=== PATIENT | male | born 1965 | race Caucasian/White ===

== ENCOUNTER 2017-04-12 16:52 | Inpatient (IN) | payer OTHER ==
--- NOTE | ~2017-04-12 | CR72 ---
[facility] A Service of [facility] RADIOLOGY TEXT RESULTS PATIENT: JORGE RICH LOCATION: [place] [address] : [birth year] UNIT #: [id number] AGE: [address]: HORACIO FRAGOSO MD SEX: M ORDER DR: [id number] [facility] [address] [facility]. [place], [place] [address] [id number] I MR#: [id number] Acc #: [id number] NAME: JORGE RICH : 1965 SEX: M STUDY DATE/TIME: 04/12/2017 18:56 UNIT: CEDOF ROOM: [id number] STUDY DESCRIPTION: CR Chest Single View Portable Attending Physician: Horacio Fragoso M.D. Ordering Physician: Lb Abdullahi M.D. Primary Care Physician: Kerry Rome M.D. MEDICAL IMAGING REPORT This report is preliminary unless electronic signature is present EXAM AP portable chest 04/12/2017 HISTORY Weakness, fatigue, chest pain, shortness of breath for 4 days. COMPARISON PA and lateral chest radiograph 08/18/2016. FINDINGS There is mjmj-fb-fntzijvm cardiac enlargement which appears increased compared to 08/18/2016. Linear subsegmental atelectasis or scarring is present left base. Pulmonary vascular distribution is normal. No pleural effusion or pneumothorax is identified. No consolidation. IMPRESSION 1. Zxxn-nj-iehodyxk cardiac enlargement appears new or increased compared to 08/18/2016. Findings could represent changes of cardiac decompensation or even underlying pericardial effusion. Correlate clinically. 2. Minimal linear scarring or subsegmental atelectasis in the left lower lobe. No consolidation. Dictated by... Tiffany Godwin M.D. THIS IS AN ELECTRONICALLY VERIFIED REPORT Tiffany Godwin M.D. at 04/13/2017 10:06 AM CECILIA/anne TD: 04/13/2017 06:27 JOB #: [id number] [facility] A Service of [facility] RADIOLOGY TEXT RESULTS PATIENT: JORGE RICH LOCATION: [facility] 571-01 : [birth year] UNIT #: [id number] AGE: [address]: HORACIO FRAGOSO MD SEX: M ORDER DR: MEDICAL IMAGING REPORT Page 1 of 1 COPY
--- NOTE | ~2017-04-12 | CO ---
Unit #: [id number] #: [id number] Patient: JORGE MELENDEZ [id number] [address] [place], [place] [address] [id number] I MR#: [id number] NAME: JORGE MELENDEZ ROOM: 577 Age: 51 Sex: M Admission Date: 04/12/2017 : 1965 Attending Physician: Linda Coughlin M.D. Primary Care Physician: Kerry Rome M.D. CONSULTATION REPORT Mr. Melendez is a very pleasant gentleman, 51 years old, with no prior cardiac history and came in achy all over, couldn't sleep, having pain, and he was admitted, found to have a pericardial effusion and had changes suggesting pericarditis. The patient underwent a tap of this and the tap showed that he had inflammatory looking infiltrate but nothing that looked malignant. He was consulted to hematology for evaluation. He did have an upper torso CT of the chest that was clear for any malignancy but has been a [facility] smoker. His father, interestingly, had bladder cancer. PAST MEDICAL HISTORY 1. Hypertension. 2. Insulin dependent diabetes. 3. Anxiety/depression. 4. Sleep apnea. 5. Left knee surgery. 6. Back surgery. ALLERGIES He is allergic to Keflex. MEDICATIONS 1. Cymbalta. 2. Metformin. 3. Humalog. 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 Smokes a pack a day. Does not drink, does not use drugs. FAMILY HISTORY Father with bladder cancer and Betty Gehrig's disease. REVIEW OF SYSTEMS Positive for chills, flu-like symptoms when he came in the hospital. Positive shortness of breath. Twelve points otherwise negative. PHYSICAL EXAMINATION VITAL SIGNS: Blood pressure of 106/78, heart rate 110, respirations 16, temperature 98.6, 93% sats on room air. He weighs 208 pounds. HEENT: Eyes - no scleral icterus. Pupils are equal. Mouth moist. Hearing is intact. NECK: Normal JVD. Trachea midline. LUNGS: Clear. Symmetric chest expansion. HEART: Regular rate and rhythm. No peripheral edema. Unit #: [id number] #: [id number] Patient: JORGE MELENDEZ ABDOMEN: Soft. No masses. LYMPHS: No cervical or supraclavicular adenoma. SKIN: No rashes, ulcers, nodules. NEUROLOGIC: He is awake, alert, oriented to person, place and time with normal memory, judgment, affect and insight. ASSESSMENT Very pleasant gentleman with pericardial effusion that has been tapped. Effusion was felt to be benign with inflammatory infiltrate. Plan is to go ahead and get a CT of the abdomen and pelvis as an outpatient, follow him in clinic. He has no palpable adenopathy and will watch. Dictated by... Ac Simmons M.D. Ankur TD: 04/17/2017 07:36 JOB #: [id number] CONSULTATION REPORT Page 1 of 1 X X CONSULTATION REPORT
--- NOTE | ~2017-04-12 | CO ---
Unit #: [id number] #: [id number] Patient: JORGE RICH [id number] [address] [place], [place] [address] [id number] I MR#: [id number] NAME: JORGE RICH ROOM: 577 Age: 51 Sex: M Admission Date: 04/12/2017 : 1965 Attending Physician: Linda Coughlin M.D. Primary Care Physician: Kerry Rome M.D. CONSULTATION REPORT REASON FOR CONSULTATION Diabetes management. HISTORY OF PRESENT ILLNESS The patient is a 51-year-old male with a history of hypertension and diabetes, admitted to the hospital with pericardial effusion. The patient is status post pericardial window and medicine consult has been placed for the diabetes management. The patient has the diagnosis of diabetes for the last 15 years and the patient is on metformin 1200 mg b.i.d. and Humulin and Humalog mix 50/50 pen 25 units subcutaneous t.i.d. with meals. The patient's blood sugar runs in the range of 150 to 200 at home. The patient's sugars are running more than 200 in the hospital. The patient's metformin is on hold secondary to the CT of the chest that the patient had at the time of admission. The patient's hemoglobin A1c is 8.6. PAST MEDICAL HISTORY 1. Hypertension. 2. Insulin dependent diabetes mellitus. 3. Anxiety/depression. PAST SURGICAL HISTORY 1. Left knee surgery. 2. Back surgery. 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 He smokes one pack per day and has done so since age 18. He denies any alcohol for the last four or five days. However, he usually drinks three drinks of whiskey per day. He denies any illicit drug abuse. FAMILY HISTORY Reviewed and none. ALLERGIES Cephalexin. HOME MEDICATIONS 1. Cymbalta. 2. Metformin 1000 b.i.d. 3. Humalog 50/50, 25 units subcutaneous t.i.d. with meals. REVIEW OF SYSTEMS Unit #: [id number] #: [id number] Patient: JORGE RICH Fourteen point review of systems was performed and only pertinent positive findings are described above. The remaining are negative. PHYSICAL EXAMINATION GENERAL: The patient is lying on the bed, not in acute distress. VITALS: Temperature 97.9, pulse 94, respiratory rate 18, saturating 97% on 2 liters. Blood pressure 122/82. HEENT: Head atraumatic, normocephalic. Pupils equal, round and reactive to light and accommodation. Extraocular movements are intact. NECK: Supple. LUNGS: Decreased air entry. CHEST: Status post pericardial window with serosanguineous fluid draining. HEART: Regular rate and rhythm. ABDOMEN: Soft. Positive bowel sounds. EXTREMITIES: No cyanosis or clubbing. NEUROLOGIC: Alert, awake and oriented. No gross focal motor deficits. DIAGNOSTIC STUDIES LABORATORY: Hemoglobin A1c 8.6, blood sugar 219, 206 and 186, sodium 133, potassium 4.6, chloride 94, bicarb 31, glucose 222, BUN 16, creatinine 0.5, calcium 8.4. White blood cell count 10, hemoglobin 12.6, hematocrit 39, platelets 228. ASSESSMENT 1. Pericardial effusion, status post pericardial window. 2. Uncontrolled diabetes mellitus. PLAN Plan to continue with postoperative (2) pericardial window and continue with sliding scale and upgrade to medium scale from the low sliding scale. We will start the home Humalog mix 50/50, 25 units subcutaneous t.i.d. with meals. Hold metformin secondary to the contrast received on 04/13/2017. Further recommendations will follow. Dictated by... Britany Hsu TD: 04/15/2017 12:48 JOB #: [id number] CONSULTATION REPORT Page 1 of 1 X KIRK AYALA MD CONSULTATION REPORT
--- NOTE | ~2017-04-12 | CR72 ---
[facility] A Service of [facility] RADIOLOGY TEXT RESULTS PATIENT: JORGE RICH LOCATION: [place] [address] : [birth year] UNIT #: [id number] AGE: [address]: HORACIO FRAGOSO MD SEX: M ORDER DR: [id number] [facility] [address] [facility]. [place], [place] [address] [id number] I MR#: [id number] Acc #: [id number] NAME: JORGE RICH : 1965 SEX: M STUDY DATE/TIME: 04/13/2017 18:45 UNIT: [facility] ROOM: [facility] STUDY DESCRIPTION: CR Chest Single View Portable Attending Physician: Horacio Fragoso M.D. Primary Care Physician: Kerry Rome M.D. MEDICAL IMAGING REPORT This report is preliminary unless electronic signature is present EXAM Chest x-ray portable HISTORY Pericardial drain placed, short of air, chest pain starting today. COMMENT Single frontal portable view of the chest timed 18:45 on 04/13/2017 compared to 04/12/2017. Moderate cardiac silhouette enlargement is mildly worse and there is worsening vascular congestion, interstitial edema and airspace disease most confluent in the left base. There is no pneumothorax. There may be some component of left pleural effusion. IMPRESSION Interval worsening in the appearance of the chest with worsening congestive failure. Most focal airspace disease is seen at the left base and there may be a component of left pleural fluid. Moderate cardiac silhouette enlargement. This could be due to cardiomyopathy and/or pericardial effusion. Clinical correlation and follow up recommended. Dictated by... Elodia Valenzuela M.D. THIS IS AN ELECTRONICALLY VERIFIED REPORT Elodia Valenzuela M.D. at 04/14/2017 10:04 AM MEHRAN/nena TD: 04/14/2017 01:51 JOB #: [id number] [facility] A Service [facility] RADIOLOGY TEXT RESULTS PATIENT: JORGE RICH LOCATION: [address] : [birth year] UNIT #: [id number] AGE: [address]: HORACIO FRAGOSO MD SEX: M ORDER DR: MEDICAL IMAGING REPORT Page 1 of 1 COPY
--- NOTE | ~2017-04-12 | EKG ---
PATIENT: JORGE RICH UNIT #: [id number] Ventricular Rate: 118 BPM Atrial Rate: 118 BPM P-R Interval: 120 ms QRS Duration: 76 ms Q-T Interval: 312 ms QTC Calculation(Bezet): 437 ms P [place]: 54 degrees Calculated R [place]: 64 degrees Calculated T [place]: 31 degrees Diagnosis Line: Sinus tachycardia Diagnosis Line: Low voltage QRS Diagnosis Line: Nonspecific ST abnormality Diagnosis Line: Abnormal ECG Diagnosis Line: No previous ECGs available Diagnosis Line: Confirmed by THELMA PARIS MD ([id number]) on Diagnosis Line: 04/13/2017 7:09:08 PM INTERPRETING MD: WELLINGTON CONRAD
--- NOTE | ~2017-04-12 | EKG ---
PATIENT: JORGE RICH UNIT #: [id number] Ventricular Rate: 99 BPM Atrial Rate: 99 BPM P-R Interval: 134 ms QRS Duration: 86 ms Q-T Interval: 354 ms QTC Calculation(Bezet): 454 ms P [place]: 35 degrees Calculated R [place]: 36 degrees Calculated T [place]: 16 degrees Diagnosis Line: Normal sinus rhythm with sinus arrhythmia Diagnosis Line: Normal ECG Diagnosis Line: When compared with ECG of 12-APR-2017 17:07, Diagnosis Line: No significant change was found Diagnosis Line: Confirmed by GER ADAMS MD ([id number]) on 04/19/2017 Diagnosis Line: 1:09:47 PM INTERPRETING MD: BRYAN CONRAD
--- NOTE | ~2017-04-12 | HP ---
Unit #: [id number] #: [id number] Patient: JORGE MELENDEZ [id number] [place] [address] [facility]. [place], [place] [address] [id number] I MR#: [id number] NAME: JORGE MELENDEZ ROOM: 571 Age: 51 Sex: M Admission Date: 04/12/2017 : 1965 Attending Physician: Linda Coughlin M.D. Primary Care Physician: Kerry Rome M.D. HISTORY AND PHYSICAL CHIEF COMPLAINT Decreased blood pressure. HISTORY OF PRESENT ILLNESS Mr. Melendez is a 51-year-old male with no prior cardiac history. He apparently has had four days of no energy, achy all over, couldn't get enough sleep, and also feeling as though his chest was achy, radiating into his shoulders and back. This was especially noted with coughing. Yesterday, he went to his primary care physician's office and at that time his blood pressure was 82/54 and 80/52 and his heart rate was elevated. He was sent to [facility] emergency room where he was admitted with hypotension. A CT of his chest was completed which has displayed moderately large pericardial effusion with pericardial enhancement suggesting underlying pericarditis. Maximal thickness of the pericardial effusion measures up to 3.1 cm posteriorly. Currently, he is stable with a lower blood pressure but doing well with no complaint of shortness of breath while lying in the bed. Having some ache in his chest occasionally. This information was received from patient interview as well as record review. PRIOR CARDIAC TESTING HISTORY He states he had an echo maybe approximately six months ago for some tachycardia but that he never followed up with those results. He believes it was at [facility] and I will attempt to find that record. PAST MEDICAL HISTORY 1. Hypertension. 2. Insulin dependent diabetes. 3. Anxiety. 4. Depression. 5. Untreated sleep apnea for which he has a CPAP machine but he is intolerant. 6. Left knee surgery. 7. Back surgery. ALLERGIES Cephalexin. HOME MEDICATIONS They include the followin. Cymbalta 60 mg daily. 2. Metformin 1000 mg twice a day. 3. Humalog 50/50 pen, 25 units subcu three times a day with meals. 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 He smokes one pack a day and has done so since age 18. He has not had any alcohol for four days but usually drinks three drinks of whiskey per day. He denies the use of illicit drugs. FAMILY HISTORY His father is living with Betty Gehrig's disease. His brothers and sister and mother are all alive and well with no known health problems. REVIEW OF SYSTEMS GENERAL: Positive for fever, chills, flu-like symptoms over the last four days but no unintentional weight loss. SKIN: Denies any rashes, ulcerations or wounds. HEADACHE: Frequently over the last four days. EYES: Yesterday he had some color change and light sensitivity. EARS: Denies any sudden change in hearing. BLEEDING: Denies epistaxis, hemoptysis, hematuria or melena. THROAT: Denies any problems swallowing. LUNGS: Denies any wheeze but positive for cough and shortness of breath, especially over the last four days. CHEST: Positive for pain as described in HPI. No palpitations, tachycardia, PND or orthopnea. GI: He denies an nausea, vomiting, diarrhea, constipation or change in stools. GENITOURINARY: Denies any burning or urgency. EXTREMITIES: Denies any swelling or increased pain with walking. SPINE: He does have occasional chronic back pain since his back surgery. NEURO: He has had right foot numbness for ten years since the back surgery. No seizures, stroke-like symptoms, dizziness, unsteadiness or falls. PHYSICAL EXAMINATION VITAL SIGNS: Blood pressure is 106/78, heart rate is 110, respirations 16, temperature is 98.6, 93% oxygenated on room air. 280 pounds. GENERAL: Well developed, well nourished white male in no acute distress, resting in the bed. SKIN: No obvious rashes or ulcerations noted. EYES: PERRLA. No xanthelasma. ORAL: Fair dentition. Moist mucous membranes. No pallor. NECK: No carotid bruits auscultated bilaterally. No jugular vein distention. SPINE: No scoliosis. CHEST: Clear to auscultation bilaterally. No wheezes, rales or rhonchi. CARDIAC: S1 and S2. No murmur, rub, gallop or lift. ABDOMEN: Soft, nontender. Positive bowel sounds. EXTREMITIES: Bilateral pedal pulses +1. NEUROLOGICAL: Alert and oriented x3. Speech is clear. No obvious neuro deficits. DIAGNOSTIC STUDIES IMAGING: CT of the chest shows moderately large pericardial effusion with pericardial enhancement suggesting underlying pericarditis. Maximal thickness of pericardial effusions measure up to 3.1 cm posteriorly. Trace left pleural effusion with mild bilateral lower lobe and lingual atelectasis. No pulmonary embolism. Chest x-ray shows mild to moderate cardiac enlargement, possible cardiac Unit #: [id number] #: [id number] Patient: JORGE MELENDEZ decompensation or underlying pericardial effusion. Minimal linear scarring or subsegmental atelectasis in the left lower lobe. LABORATORY: Sodium 132, potassium 4.7, glucose 207, BUN 16, creatinine 0.6, cholesterol 143, triglycerides 114, LDH 75, HDL 45, TSH 1.69. PT 11.2, INR 1.1, hemoglobin 12.2, hematocrit 37.1, platelets 230 and white blood cell count 11.5. Troponin less than 0.05 x2. Hemoglobin 12.9, hematocrit 39, platelets 269 and white blood cell count 13.7. IMPRESSION 1. Large pericardial effusion. 2. Hypotension. 3. Tachycardia. 4. Hyponatremia. 5. History of hypertension. 6. Insulin dependent diabetes. 7. Anxiety/depression. 8. Untreated obstructive sleep apnea. PLAN We will get a stat echocardiogram and drain effusion if restrictive pericarditis is noted or tamponade. Remain NPO for now, holding home medications due to NPO status and decreased blood pressure at this time. Thank you. Further recommendations to be made post echo which we have called for to be completed stat at this time. Dictated by Sarah RojasRDodieN. for Mohan Emmanuel M.D. Ludmila TD: 04/13/2017 10:30 JOB #: [id number] HISTORY AND PHYSICAL Page 1 of 1 X X HISTORY AND PHYSICAL
--- NOTE | ~2017-04-12 | CT16 ---
[facility] A Service of [facility] RADIOLOGY TEXT RESULTS PATIENT: JORGE RICH LOCATION: [facility] 571-01 : [birth year] UNIT #: [id number] AGE: [address]: HORACIO FRAGOSO MD SEX: M ORDER DR: [id number] [facility] [address] [facility]. [place], [place] [address] [id number] I MR#: [id number] Acc #: [id number] NAME: JORGE RICH : 1965 SEX: M STUDY DATE/TIME: 04/12/2017 19:40 UNIT: [facility] ROOM: [facility] STUDY DESCRIPTION: CT Angio Chest for PE Attending Physician: Horacio Fragoso M.D. Ordering Physician: Dav Pimentel M.D. Primary Care Physician: Kerry Rome M.D. MEDICAL IMAGING REPORT This report is preliminary unless electronic signature is present EXAM CTA chest with contrast pulmonary embolism protocol DATE 04/12/2017 HISTORY 51-year-old male with chest pain, fatigue, generalized weakness for 4 days. Additional history of diabetes and hypertension and previous back surgery. COMPARISON AP portable chest 04/12/[address] chest at this institution for comparison. PROCEDURE 2 mm axial images through the chest after IV contrast administration. 3D coronal MIP reformatted images were obtained. This CT exam was performed with one or more of the following radiation dose reduction techniques: Automatic exposure control, adjustment of mA and/or kV according to patient size, and iterative reconstruction. FINDINGS There is a wfugplhq-px-ymkph concentric pericardial effusion with pericardial enhancement. Findings suggest underlying acute pericarditis. The maximal thickness of the pericardial effusion is up to 3.1 cm posteriorly. Trace left pleural effusion is present with mild subsegmental atelectasis in the posterior bilateral lower lobes and within lingula, greatest in left lower lobe. No dense lung consolidations are identified. There is no evidence of pulmonary embolism, aortic aneurysm, or [facility] A Service of [facility] RADIOLOGY TEXT RESULTS PATIENT: JORGE RICH LOCATION: [facility] 571-01 : [birth year] UNIT #: [id number] AGE: [address]: HORACIO FRAGOSO MD SEX: M ORDER DR: dissection. Dense coronary calcifications are present. Included upper abdominal organs are within normal limits. No acute osseous abnormalities are identified. IMPRESSION 1. Moderately large pericardial effusion with pericardial enhancement suggesting underlying pericarditis. Maximal thickness of the pericardial effusion measures up to 3.1 cm posteriorly. 2. Trace left pleural effusion with mild bilateral lower lobe and lingular atelectasis. 3. No pulmonary embolism. Dictated by... Tiffany Godwin M.D. THIS IS AN ELECTRONICALLY VERIFIED REPORT Tiffany Godwin M.D. at 04/13/2017 10:06 AM CECILIA/agustín TD: 04/13/2017 08:55 JOB #: [id number] MEDICAL IMAGING REPORT Page 1 of 1 COPY
--- NOTE | ~2017-04-12 | DS ---
Unit #: [id number] #: [id number] Patient: JORGE RICH [id number] [address] [place], [place] [address] [id number] I MR#: [id number] NAME: JORGE RICH ROOM: 577 Age: 51 Sex: M Admission Date: 04/12/2017 : 1965 Discharge Date: 04/16/2017 Attending Physician: Linda Coughlin M.D. Primary Care Physician: Kerry Rome M.D. DISCHARGE SUMMARY DISCHARGE DIAGNOSES 1. Pericardial effusion, status post pericardial centesis with drain. 2. Diabetes. 3. Chronic obstructive pulmonary disease. PROCEDURES PERFORMED On 04/13/2017 the patient had a pericardial centesis with 750 ml of serosanguineous fluid drained off the pericardial cavity. Drain was left in for collection. DIAGNOSTIC DATA LABORATORY: Most recent, white blood cell count 11.7, hemoglobin 12.4, hematocrit 38, platelets 274, sodium 133, potassium 4, chloride 96, CO2 28, BUN 10, creatinine 0.4, glucose 124, magnesium 2, TSH 1.69. Pleural fluid likely negative for malignancy. Pleural fluid negative for viral. HOSPITAL COURSE The patient is a 51-year-old male with no prior cardiac history. The patient presented to the emergency room with complaint of four days of no energy, feeling achy all over and unable to sleep. He also felt that his chest was achy and radiated into his shoulders and back. He also noted that he had been coughing. Apparently he went to his primary care physician's office and at that time was found to have a blood pressure in the 80s/50s and his heart rate was elevated. The patient was sent to [facility] emergency room, where he was admitted for hypotension. A CT scan of his chest was completed, which had shown a displaced, moderately large pericardial effusion with pericardial enhancement, suggesting underlying pericarditis. Maximal thickness of the periradial effusion measured 1.3 cm posteriorly. The patient was admitted for further workup. Next, the patient had a two-dimensional echocardiogram on 04/13/2017 which showed an ejection fraction of 50%-55%. He had impaired grade 1 diastolic dysfunction, excessive respirations, to consider tamponade ventilation related. He was found to have a moderate pericardial effusion. The patient's drain was discontinued on 04/15/2017. A limited two-dimensional echocardiogram today showed a small pericardial effusion. Dr. Emmanuel has seen the patient and feels that the patient is stable for discharge. DISPOSITION The patient will be discharged home. FOLLOWUP 1. The patient will need to follow up with primary care physician in one Unit #: [id number] #: [id number] Patient: JORGE RICH divine. 2. The patient will need to follow up with Dr. Emmanuel in five weeks. 3. The patient is to have a two-dimensional echocardiogram in four weeks. DIET Healthy heart. ACTIVITY As tolerated. DISCHARGE INSTRUCTIONS The patient is to seek medical attention or return to the emergency room if signs or symptoms worsen. DISCHARGE MEDICATIONS 1. Cymbalta 60 mg p.o. daily. 2. Metformin 1000 mg p.o. b.i.d. 3. Nicotine transdermal patch 21 mg transdermal in the morning. 4. Humalog mix 50/50 pen 25 units subcutaneous t.i.d. with meals. 5. Colchicine 0.6 mg p.o. daily times 3 more days. 6. Motrin 600 mg p.o. q.6 h. p.r.n. pain times 3 more days. Dictated by... Suni Miner A.P.R.N. for Mohan Emmanuel M.D. AM/nimesh TD: 04/16/2017 12:39 JOB #: [id number] DISCHARGE SUMMARY Page 1 of 1 X Suni Miner APRN X DISCHARGE SUMMARY
[~2017-04-12 16:52] MED LIST: ALTACE; DUETACT; GLYNASE PO; HUMALOG MI100 UNIT/3 SQ; LANTUS100 U/ML SQ; LISINOPRIL PO; LORTAB 7.5-5001 TAB PO; METFORMIN HCL1000 M1 PO; ROBAXIN500 MG PO; TALWIN NX TABLE1 TAB PO; WELLBUTRIN PO
[2017-04-12 17:30] LABS: BASOPHIL# 0.1 X10e3 (0-0.3); BASOPHIL% 0.6 % (0-2.5); DIFF IND NO; EOSINOPHIL% 0.3 % (0.0-7.0); HEMOGLOBIN 12.9 gm/dL (13.0-16.0); LYMPHOCYTE# 2.1 X10e3 (1.0-3.5); LYMPHOCYTE% 15.1 % (17.0-45.0); MEAN CELL VOLUME 91.8 FL (83-96); MEAN CORPUSCULAR HEMOGLOBIN 30.3 PG (28-34); MEAN PLATELET VOLUME 7.7 FL (6.5-11.5); MONOCYTE# 1.7 X10e3 (0-1.0); MONOCYTE% 12.7 % (3.0-12.0); NEUTROPHIL# 9.8 X10e3 (1.5-7.1); NEUTROPHIL% 71.3 % (40-75); PLATELET COUNT 268 X10e3 (140-420); RED BLOOD COUNT 4.25 X10e (3.90-5.60); WHITE BLOOD COUNT 13.7 X10e3 (4.0-10.5)
[2017-04-12 17:47] LABS: POC - CKMB 1.1 ng/mL (0.0-7.9); POC - TROPONIN <0.05 ng/mL (<=0.05)
[2017-04-12 17:54] LABS: ALBUMIN SERUM 3.3 g/dL (3.5-5.0); BILIRUBIN, DIRECT 0.4 mg/dL (0.0-0.2); BILIRUBIN,INDIRECT 1.1 mg/dL (0.0-0.9); BILIRUBIN,TOTAL 1.5 mg/dL (0.2-2.0); CALCIUM SERUM 9.2 mg/dL (8.4-10.2); GLOM FILT RATE Estimated 86.2 mL/min (>60); POTASSIUM 5.1 mmol/L (3.5-5.1); PROTEIN TOTAL SERUM 7.7 g/dL (6.0-8.3)
[2017-04-12 20:43] LABS: POC - CKMB <1.0 ng/mL (0.0-7.9); POC - TROPONIN <0.05 ng/mL (<=0.05)
[2017-04-13] MEDS ORDERED: DULOXETINE HCL60 MG PO (05:36)
[2017-04-13] MEDS ORDERED: METFORMIN HCL1000 M1 PO (05:37)
[2017-04-13] MEDS ORDERED: HUMALOG MI100 UNIT/3 SUBQ (05:39)
[2017-04-13 06:11] LABS: BASOPHIL# 0.1 X10e3 (0-0.3); BASOPHIL% 0.6 % (0-2.5); EOSINOPHIL% 0.4 % (0.0-7.0); HEMATOCRIT 37.1 % (38.0-50.0); HEMOGLOBIN 12.2 gm/dL (13.0-16.0); LYMPHOCYTE% 17.7 % (17.0-45.0); MEAN CELL VOLUME 91.2 FL (83-96); MEAN CORPUSCULAR HEMOGLOBIN 29.9 PG (28-34); MEAN CORPUSCULAR HGB CONC 32.8 g/dL (30-36); MONOCYTE# 1.5 X10e3 (0-1.0); MONOCYTE% 13.2 % (3.0-12.0); NEUTROPHIL# 7.9 X10e3 (1.5-7.1); NEUTROPHIL% 68.1 % (40-75); PLATELET COUNT 230 X10e3 (140-420); RED BLOOD COUNT 4.07 X10e (3.90-5.60); RED CELL DISTRIBUTION WIDTH 13.7 % (11.0-15.5); WHITE BLOOD COUNT 11.5 X10e3 (4.0-10.5)
[2017-04-13 06:13] LABS: DIFF IND NO
[2017-04-13 06:24] LABS: INR 1.1; PROTHROMBIN TIME (PATIENT) 11.2 SECONDS (9.6-11.5)
[2017-04-13 06:46] LABS: BUN/CREATININE RATIO 26.66; CALCIUM SERUM 8.9 mg/dL (8.4-10.2); CREATININE SERUM 0.6 mg/dL (0.6-1.4); GLOM FILT RATE Estimated 115.6 mL/min (>60); POTASSIUM 4.7 mmol/L (3.5-5.1)
[2017-04-13 18:55] LABS: BODY FLUID APPEARANCE BLOODY; BODY FLUID SOURCE PERICARDIAL
[2017-04-13 18:56] LABS: BF TOTAL NUCLEATED CELL COUNT 2473 CMM (0-100); BODY FLUID RBC 326037 CMM
[2017-04-13 19:02] LABS: PROTEIN, BODY FLUID 5.9 gm/dL
[2017-04-13 19:22] LABS: BASOPHIL# 0.1 X10e3 (0-0.3); BASOPHIL% 0.5 % (0-2.5); EOSINOPHIL% 0.1 % (0.0-7.0); HEMATOCRIT 37.3 % (38.0-50.0); HEMOGLOBIN 12.2 gm/dL (13.0-16.0); LYMPHOCYTE% 17.1 % (17.0-45.0); MEAN CELL VOLUME 91.2 FL (83-96); MEAN CORPUSCULAR HEMOGLOBIN 29.7 PG (28-34); MEAN CORPUSCULAR HGB CONC 32.6 g/dL (30-36); MEAN PLATELET VOLUME 7.7 FL (6.5-11.5); MONOCYTE# 1.6 X10e3 (0-1.0); MONOCYTE% 13.6 % (3.0-12.0); NEUTROPHIL# 8.2 X10e3 (1.5-7.1); NEUTROPHIL% 68.7 % (40-75); PLATELET COUNT 250 X10e3 (140-420); RED BLOOD COUNT 4.09 X10e (3.90-5.60); RED CELL DISTRIBUTION WIDTH 14.1 % (11.0-15.5); WHITE BLOOD COUNT 11.9 X10e3 (4.0-10.5)
[2017-04-13 19:26] LABS: DIFF IND NO
[2017-04-14 05:34] LABS: BASOPHIL% 0.5 % (0-2.5); EOSINOPHIL% 0.5 % (0.0-7.0); HEMOGLOBIN 12.6 gm/dL (13.0-16.0); LYMPHOCYTE# 2.2 X10e3 (1.0-3.5); LYMPHOCYTE% 21.8 % (17.0-45.0); MEAN CELL VOLUME 92.4 FL (83-96); MEAN CORPUSCULAR HEMOGLOBIN 29.9 PG (28-34); MEAN CORPUSCULAR HGB CONC 32.4 g/dL (30-36); MONOCYTE# 1.4 X10e3 (0-1.0); MONOCYTE% 14.2 % (3.0-12.0); NEUTROPHIL# 6.3 X10e3 (1.5-7.1); PLATELET COUNT 228 X10e3 (140-420); RED BLOOD COUNT 4.23 X10e (3.90-5.60)
[2017-04-14 05:38] LABS: DIFF IND NO
[2017-04-14 07:04] LABS: ALBUMIN SERUM 2.8 g/dL (3.5-5.0); CALCIUM SERUM 8.4 mg/dL (8.4-10.2); CREATININE SERUM 0.5 mg/dL (0.6-1.4); GLOM FILT RATE Estimated 124.6 mL/min (>60); POTASSIUM 4.3 mmol/L (3.5-5.1); PROTEIN TOTAL SERUM 6.4 g/dL (6.0-8.3)
[2017-04-15 04:07] LABS: CALCIUM SERUM 8.3 mg/dL (8.4-10.2); CREATININE SERUM 0.5 mg/dL (0.6-1.4); GLOM FILT RATE Estimated 124.6 mL/min (>60); MAGNESIUM 1.9 mg/dL (1.6-3.0)
[2017-04-15 04:10] LABS: %MB 2.6 % (0.0-4.0); MB 1.6 ng/ml
[2017-04-16 07:46] LABS: HEMOGLOBIN 12.4 gm/dL (13.0-16.0); MEAN CORPUSCULAR HEMOGLOBIN 29.6 PG (28-34); MEAN CORPUSCULAR HGB CONC 32.5 g/dL (30-36); MEAN PLATELET VOLUME 7.9 FL (6.5-11.5); RED BLOOD COUNT 4.18 X10e (3.90-5.60); RED CELL DISTRIBUTION WIDTH 13.7 % (11.0-15.5); WHITE BLOOD COUNT 11.7 X10e3 (4.0-10.5)
[2017-04-16 08:20] LABS: CALCIUM SERUM 8.4 mg/dL (8.4-10.2); CREATININE SERUM 0.5 mg/dL (0.6-1.4); GLOM FILT RATE Estimated 124.6 mL/min (>60)
[2017-04-16] MEDS ORDERED: MOTRIN600 M1 PO (14:23)
[2017-04-16] MEDS ORDERED: COLCRYS0.6 M2 PO (14:24)
== END 2017-04-16 18:54 | disposition home or self-care (01) | DRG 314 ==
LOC: CED 16:52 → CICCU3 21:32 → C5C 21:32 → CEDOF 21:32 → CED 22:52 → CEDOF 22:52 → C5C 04-13 07:51 → CEDOF 04-13 07:51 → C5C 04-13 18:20 → CICCU3 04-13 18:20 → C5C 04-14 13:07
PROVIDERS: Emergency Medicine; Internal Medicine Interventional Cardiology; Nurse Practitioner
PROC: B246ZZZ Ultrasonography of Right and Left Heart (ICD-10-PCS; principal; 2017-04-13)
PROC: 0W9D3ZZ Drainage of Pericardial Cavity, Percutaneous Approach (ICD-10-PCS; 2017-04-13)
DX: I31.3 Pericardial effusion (noninflammatory) (principal); I50.31 Acute diastolic (congestive) heart failure; I95.9 Hypotension, unspecified; E87.1 Hypo-osmolality and hyponatremia; E11.65 Type 2 diabetes mellitus with hyperglycemia; I11.0 Hypertensive heart disease with heart failure; Z88.1 Allergy status to other antibiotic agents; J44.9 Chronic obstructive pulmonary disease, unspecified; G47.33 Obstructive sleep apnea (adult) (pediatric); F41.9 Anxiety disorder, unspecified; F32.9 Major depressive disorder, single episode, unspecified; F17.210 Nicotine dependence, cigarettes, uncomplicated
CPT/HCPCS: 36415; 71010; 71275; 80048; 80053; 80061; 80076; 82550; 82553; 82945; 82947; 83036; 83615; 83735; 83986; 84157; 84443; 84484; 85025; 85027; 85610; 86301; 87070; 87102; 87116; 87205; 87206; 88108; 88305; 88312; 89051; 93005; 93306; 93308; 94760; 99285; C1729; C1769; C1894; J1170; J1644; J1815; J1940; J2001; J2250; J2270; J3010; Q9967

== ENCOUNTER 2017-04-19 16:59 | Emergency (ER) | payer OTHER ==
--- NOTE | ~2017-04-19 | CR72 ---
[facility] A Service [facility] RADIOLOGY TEXT RESULTS PATIENT: JORGE RICH LOCATION: PAR[place] : 63 UNIT #: [id number] AGE: [address]: Merlyn Singh MD SEX: M ORDER DR: [id number] [place], [place] [address] [id number] E MR#: [id number] Acc #: [id number] NAME: JORGE RICH : 1965 SEX: M STUDY DATE/TIME: 04/19/2017 17:41 UNIT: PARUL ROOM: STUDY DESCRIPTION: CR Chest Single View Portable Attending Physician: Merlyn Singh M.D. Ordering Physician: Ed Carlo Pimentel M.D. Primary Care Physician: Yasmeen Hernandez Aprn MEDICAL IMAGING REPORT This report is preliminary unless electronic signature is present EXAM Portable chest INDICATIONS CHF today, cough and hypotension for the past week. PROCEDURE Frontal view of the chest. COMPARISON 04/13/2017 FINDINGS Stable cardiomegaly. Improving interstitial prominence. There is persistent scarring, atelectasis or possibly small effusion at the left lung base. IMPRESSION Improved interstitial prominence since 04/13/2017, with persistent opacity at the left lung base that could represent scarring, atelectasis or pleural fluid. Dictated by... Boubacar Salomon M.D. THIS IS AN ELECTRONICALLY VERIFIED REPORT Boubacar Salomon M.D. at 04/20/2017 2:25 PM EED/psc TD: 04/19/2017 22:09 JOB #: [id number] [facility] A Service of [facility] RADIOLOGY TEXT RESULTS PATIENT: JORGE RICH LOCATION: [facility] : 63 UNIT #: [id number] AGE: [address]: Merlyn Singh MD SEX: M ORDER DR: MEDICAL IMAGING REPORT Page 1 of 1 COPY
--- NOTE | ~2017-04-19 | EKG ---
PATIENT: JORGE RICH UNIT #: [id number] Ventricular Rate: 104 BPM Atrial Rate: 104 BPM P-R Interval: 130 ms QRS Duration: 82 ms Q-T Interval: 322 ms QTC Calculation(Bezet): 423 ms P [place]: 58 degrees Calculated R [place]: 68 degrees Calculated T [place]: 42 degrees Diagnosis Line: Sinus tachycardia Diagnosis Line: Possible Left atrial enlargement Diagnosis Line: Nonspecific ST abnormality Diagnosis Line: Abnormal ECG Diagnosis Line: When compared with ECG of 15-APR-2017 03:02, Diagnosis Line: No significant change was found Diagnosis Line: Confirmed by PILO TAVAREZ MD ([id number]) on 04/20/2017 Diagnosis Line: 6:40:39 PM INTERPRETING MD: CORBY CONRAD
[~2017-04-19 16:59] MED LIST changes: +COLCRYS0.6 M2 PO; +DULOXETINE HCL60 MG PO; +HUMALOG MI100 UNIT/3 SUBQ; +MOTRIN600 M1 PO
[2017-04-19 18:37] LABS: BASOPHIL# 0.1 X10e3 (0-0.3); DIFF IND NO; EOSINOPHIL# 0.1 X10e3 (0-0.7); EOSINOPHIL% 1.2 % (0.0-7.0); HEMATOCRIT 37.4 % (38.0-50.0); HEMOGLOBIN 12.5 gm/dL (13.0-16.0); LYMPHOCYTE% 31.2 % (17.0-45.0); MEAN CELL VOLUME 89.6 FL (83-96); MEAN CORPUSCULAR HGB CONC 33.5 g/dL (30-36); MONOCYTE# 0.8 X10e3 (0-1.0); MONOCYTE% 8.9 % (3.0-12.0); NEUTROPHIL# 5.5 X10e3 (1.5-7.1); NEUTROPHIL% 57.7 % (40-75); PLATELET COUNT 421 X10e3 (140-420); RED BLOOD COUNT 4.17 X10e (3.90-5.60); RED CELL DISTRIBUTION WIDTH 14.2 % (11.0-15.5); WHITE BLOOD COUNT 9.5 X10e3 (4.0-10.5)
[2017-04-19 19:20] LABS: BUN/CREATININE RATIO 21.66; CALCIUM SERUM 9.8 mg/dL (8.4-10.2); CREATININE SERUM 0.6 mg/dL (0.6-1.4); GLOM FILT RATE Estimated 115.6 mL/min (>60); POTASSIUM 4.2 mmol/L (3.5-5.1)
== END 2017-04-19 20:05 | disposition home or self-care (01) ==
LOC: CED 16:59
DX: I11.0 Hypertensive heart disease with heart failure (principal); I50.9 Heart failure, unspecified; E11.9 Type 2 diabetes mellitus without complications; F17.200 Nicotine dependence, unspecified, uncomplicated; Z88.1 Allergy status to other antibiotic agents; Z79.899 Other long term (current) drug therapy
CPT/HCPCS: 36415; 71010; 80048; 83880; 85025; 93005; 99283; G0480

== ENCOUNTER 2017-04-26 14:37 | Observation (INO) | payer OTHER ==
--- NOTE | ~2017-04-26 | CT16 ---
[facility] A Service of [facility] RADIOLOGY TEXT RESULTS PATIENT: JORGE RICH LOCATION: A 303-01 : 63 UNIT #: [id number] AGE: [address]: Simona Prince MD SEX: M ORDER DR: [id number] [facility] [address] [place], [place] [address] [id number] E MR#: [id number] Acc #: [id number] NAME: JORGE RICH : 1965 SEX: M STUDY DATE/TIME: 04/26/2017 19:54 UNIT: [facility] ROOM: STUDY DESCRIPTION: CT Angio Chest for PE Attending Physician: Génesis Cross M.D. Ordering Physician: Génesis Cross M.D. Primary Care Physician: Yasmeen Hernandez Aprn MEDICAL IMAGING REPORT This report is preliminary unless electronic signature is present EXAM CTA chest. INDICATION Shortness of air and chest pain for [address] angiography of the chest utilizing 80 mL Isovue-370 IV contrast. Coronal, 3D, MIP reconstructions and standard sagittal reconstructions were obtained. This CT exam was performed with one or more of the following radiation dose reduction techniques: automatic exposure control, adjustment of mA and/or kV according to patient size, and iterative reconstruction. COMPARISON CTA chest dated 04/12/2017. FINDINGS Respiratory motion precludes evaluation of the peripheral pulmonary arteries, however, there is no central pulmonary embolus. No thoracic aortic aneurysm or dissection. The main pulmonary arteries are at the upper limits of normal measuring 3 cm. There is a small pericardial effusion measuring 1.5 cm in thickness. This previously measured up to 3.1 cm in thickness. There is a moderate left pleural effusion which was previously a small pleural effusion. The pleural effusion measures approximately 3 cm in thickness compared to 1 cm previously. There is increased atelectasis in the left lower lobe presumably due to the effusion. The central airways are patent. In the right lung there are a few small pulmonary nodules, however, these measure less than 3 mm. These small nodules can be followed. They are likely benign granulomas. There are increased number of small mesenteric lymph nodes, however, these are all subcentimeter in diameter. [facility] A Service of [facility] RADIOLOGY TEXT RESULTS PATIENT: JORGE RICH LOCATION: [facility] 303-01 : 63 UNIT #: [id number] AGE: [address]: Simona Prince MD SEX: M ORDER DR: Please refer to the separately dictated report for details on the abdomen. No acute osseous abnormalities. IMPRESSION 1. Negative for central pulmonary embolus. Respiratory motion limits evaluation of the peripheral pulmonary arteries. 2. Enlargement of a moderate left pleural effusion since the 04/12/2017 comparison. 3. Increased density in the left lung bases presumably atelectasis from the increased size of the effusion, however, correlate for any evidence of pneumonia. 4. Decreased size of the pericardial effusion. The previously moderate to large pericardial effusion is now a small effusion. 5. Few small pulmonary nodules in the right lung are likely benign granulomas and can be followed. Given their small size, I would recommend a 12-month follow up CT scan. Dictated by... Robert King M.D. THIS IS AN ELECTRONICALLY VERIFIED REPORT Robert King M.D. at 04/27/2017 1:18 PM MUSTAPHA/kenneth TD: 04/26/2017 21:30 JOB #: [id number] MEDICAL IMAGING REPORT Page 1 of 1 COPY
--- NOTE | ~2017-04-26 | DS ---
Unit #: [id number] #: [id number] Patient: JORGE MELENDEZ [id number] [address] [place], [place] [address] [id number] I MR#: [id number] NAME: JORGE MELENDEZ ROOM: 303 Age: 51 Sex: M Admission Date: 04/26/2017 : 1965 Discharge Date: 04/27/2017 Attending Physician: Simona Prince M.D. Primary Care Physician: Yasmeen Hernandez, [employer] DISCHARGE SUMMARY PRINCIPAL DIAGNOSES 1. Acute onset of dyspnea with resolution, etiology unknown. 2. Small left pleural effusion. 3. Tobaccoism. 4. Insulin dependent diabetes mellitus. 5. Hypertension. 6. Obstructive sleep apnea. 7. Cirrhosis per imaging. 8. Alcohol use. CONSULTANTS None. PROCEDURES 1. Attempted left-sided thoracentesis for which there was too little fluid for procedure. 2. CT of the abdomen and pelvis without contrast on 04/26/2017 with no acute findings. No evidence of ascites. Hepatic steatosis with changes of cirrhosis noted. 3. CT angiogram of the chest on 04/26/2017, which was negative for PE. Enlargement of moderate left pleural effusion, noted increased density in the left lung base, presumably atelectasis. Decreased size of the pericardial effusion is now small. A few small pulmonary nodules in the right lung are benign. CLINICAL HISTORY AND HOSPITAL COURSE Mr. Melendez is a 51-year-old male discharged from this facility on 05/16/2017 after presenting with pericardial effusion. There was felt to be a benign inflammation. Patient had the sudden onset of dyspnea yesterday. He was having imaging studies done to workup for possible malignancy given this pericardial effusion Patient was told to present to the emergency department. Blood workup presentation revealed some leukocytosis with a white blood cell count of 16.4, primarily neutrophils; however, he was not given any antibiotics given lack of fever. BMP was normal. Troponins were normal. He was placed in observation. A thoracentesis was ordered but upon arrival to the emergency department the patient's pleural effusion was quite small and distance from chest wall to fluid is the upper limits of normal. Thus procedure was not done. Today patient states his dyspnea has resolved spontaneously and he has not received any medications. His white blood cell count is down to 10.9. I will note his sed rate is elevated at 89. He currently has a pending LEELEE, rheumatoid factor, LDH, in addition to blood cultures which I will Unit #: [id number] #: [id number] Patient: JORGE MELENDEZ followup after his discharge. I am going to discharge home later today. DISCHARGE CONDITION Stable. DISCHARGE STATUS Discharge to home. DISCHARGE MEDICATIONS 1. Cymbalta 60 mg daily. 2. Metformin 1,000 mg b.i.d. 3. Humalog 50/50 25 units subcu t.i.d. with meals. DISCHARGE INSTRUCTIONS Patient was instructed to follow a heart healthy diet and constant carb diet. He will continue Accu-Cheks a.c. and h.s. He should refrain from tobacco use. He should refrain from alcohol use as well. FOLLOWUP Patient will followup with Dr. Emmanuel as previously scheduled. He will followup with his primary care provider in one week. Dictated by... Simona Prince M.D. MAHESH/diana TD: 04/28/2017 10:05 JOB #: [id number] DISCHARGE SUMMARY Page 1 of 1 X Simona Prince MD X DISCHARGE SUMMARY
--- NOTE | ~2017-04-26 | EKG ---
PATIENT: JORGE RICH UNIT #: [id number] Ventricular Rate: 115 BPM Atrial Rate: 115 BPM P-R Interval: 118 ms QRS Duration: 72 ms Q-T Interval: 310 ms QTC Calculation(Bezet): 428 ms P [place]: 36 degrees Calculated R [place]: 46 degrees Calculated T [place]: 61 degrees Diagnosis Line: Sinus tachycardia Diagnosis Line: Possible Left atrial enlargement Diagnosis Line: Nonspecific T wave abnormality Diagnosis Line: Abnormal ECG Diagnosis Line: When compared with ECG of 19-APR-2017 17:44, Diagnosis Line: No significant change was found Diagnosis Line: Confirmed by MADISON RANKIN MD ([id number]) on Diagnosis Line: 04/28/2017 3:42:30 PM INTERPRETING MD: SYDNEY
--- NOTE | ~2017-04-26 | HP ---
Unit #: [id number] #: [id number] Patient: JORGE RICH [id number] [address] [place], [place] [address] [id number] I MR#: [id number] NAME: JORGE RICH ROOM: 58977 Age: 51 Sex: M Admission Date: 04/26/2017 : 1965 Attending Physician: Heather Guardado M.D. Primary Care Physician: Yasmeen Hernandez Aprn HISTORY AND PHYSICAL CHIEF COMPLAINT Dyspnea with a CT scan showing increasing left pleural effusion. HISTORY This pleasant 51-year-old male with IDDM, hypertension, recent admission for early tamponade, is admitted for shortness of breath. The patient was admitted to this facility 04/12 thorough 04/16/2017 for a large pericardial effusion and early tamponade. He underwent pericardiocentesis with 750 mL of fluid removed. I am told that the fluid was most consistent with a benign inflammatory process. The patient was seen by Oncology as there was some concern that he could have malignancy. Oncology sent the patient in today for a CT scan of the abdomen, pelvis and chest. The patient states that he began to free ill last evening with some pleuritic left chest discomfort and fatigue. CT scan today shows hepatic steatosis and possibly early cirrhosis. Also enlarging moderate left pleural effusion noted with decreased size of the pericardial effusion, likely benign granulomas. Due to the patient's symptoms, he was sent to this ER where he is mildly tachycardic. He also makes note of some recent headaches which are in the back of the head and over the sinus region. Has a chronic cough which is unchanged. PAST MEDICAL HISTORY 1. Recent admission for pericardial effusion/early tamponade requiring pericardiocentesis. 2. Hypertension. 3. IDDM x6 to 7 years. 4. Anxiety and depression. 5. Obstructive sleep apnea, intolerant to CPAP or BiPAP. 6. Left knee surgery. 7. Back surgery. ALLERGIES Keflex. HOME MEDICATIONS 1. Lisinopril 10 mg daily. 2. Cymbalta 60 mg daily. 3. Metformin 1000 mg b.i.d. 4. NicoDerm patch. 5. Humalog mix 50/50 25 units t.i.d. with meals. FAMILY HISTORY Unit #: [id number] #: [id number] Patient: JORGE RICH Betty Gehrig disease. SOCIAL HISTORY The patient lives with his and son. He smokes one pack per day of tobacco, does drink alcohol on a daily basis but denies withdrawal symptoms. REVIEW OF SYSTEMS Review of systems is notable for some shortness of breath, fatigue, left back and chest discomfort, hypertension, IDDM, anxiety, depression, sleep apnea, abovementioned surgeries. All other systems were reviewed and are negative. PHYSICAL EXAMINATION GENERAL: Pleasant, moderately obese 51-year-old male currently in no acute distress. VITAL SIGNS: Temperature 98.4. Pulse 116. Respirations 16. Blood pressure 120/66. O2 saturation is 98% on room air. HEENT: Eyes PERRLA, extraocular muscles are intact. Pharynx is benign. NECK: Supple, without adenopathy or thyromegaly. CHEST: Chest is actually clear. CARDIAC: Normal S1 and S2, without definite murmur. ABDOMEN: Bowel sounds are present. No hepatosplenomegaly, tenderness or masses. EXTREMITIES: Without cyanosis, clubbing or edema. Pedal pulses are present. LYMPHATIC: No cervical, supraclavicular or axillary lymphadenopathy. NEUROLOGIC EXAM: Patient is awake, alert, oriented. His cranial nerves are intact. He has equal strength throughout. DIAGNOSTIC STUDIES ADMISSION LABORATORY: Hematocrit of 39.1, white blood count of 16.4, normal platelet count. SMA-12: Glucose is 149, sodium 131, chloride is 96, albumin is 3.3. Cardiac markers are negative. IMAGING: CT scan of the abdomen and pelvis shows hepatic steatosis and possibly some early cirrhotic changes. CTA of the chest negative for gross PE. Enlarging moderate left pleural effusion with a density at the left base, patient denies symptoms of pneumonia however. Decreasing size of pericardial effusion, likely benign granulomas. CARDIOVASCULAR: EKG sinus tachycardia rate 115. ASSESSMENT 1. Shortness of breath and chest and back discomfort. CT scan shows increasing left pleural effusion. 2. Recent admission for pericardial effusion with early tamponade requiring pericardiocentesis. The fluid was thought to be benign/inflammatory. 3. Tobacco abuse. 4. Daily alcohol use. 5. Hepatic steatosis, early cirrhosis. 6. Insulin dependent diabetes mellitus. 7. Hypertension. 8. Obstructive sleep apnea, intolerant to CPAP/BiPAP. Unit #: [id number] #: [id number] Patient: JORGE RICH PLANS 1. Thoracentesis per Interventional Radiology and analyze fluid for pH, cytology, cell count and diff, LDH, protein, cultures and AFB. 2. Check TSH, sed rate, LEELEE, rheumatoid factor and blood cultures. 3. Pulmonary consultation and will notify Cardiology of the patient's admission. 4. SCDs for DVT prophylaxis. 5. I did talk with the patient about CT scan findings. Dictated by Heather Guardado M.D. AML/cf TD: 04/26/2017 23:09 JOB #: [id number] HISTORY AND PHYSICAL Page 1 of 1 X Heather Guardado MD X HISTORY AND PHYSICAL
--- NOTE | ~2017-04-26 | XA203 ---
[facility] A Service of [facility] RADIOLOGY TEXT RESULTS PATIENT: JORGE MELENDEZ LOCATION: [facility] 303-01 : 63 UNIT #: [id number] AGE: [address]: Simona Prince MD SEX: M ORDER DR: [id number] [facility] [address]. [place], [place] [address] [id number] I MR#: [id number] Acc #: [id number] NAME: JORGE MELENDEZ : 1965 SEX: M STUDY DATE/TIME: 04/27/2017 9:55 UNIT: [address] ROOM: [facility] STUDY DESCRIPTION: XA Thoracentesis Attending Physician: Simona Prince M.D. Ordering Physician: Heather Guardado M.D. Primary Care Physician: Yasmeen Hernandez Aprn MEDICAL IMAGING REPORT This report is preliminary unless electronic signature is present EXAM Attempted CT-guided thoracentesis. INDICATION Mr. Melendez is a 51-year-old man who was referred for left thoracentesis. Preliminary ultrasound of the left hemithorax showed a very small amount of fluid. He was subsequently transferred to CT for an attempt under CT guidance. FINDINGS Please see CT guide for results. Dictated by... Shayla Moore M.D. THIS IS AN ELECTRONICALLY VERIFIED REPORT Shayla Moore M.D. at 05/01/2017 3:27 PM AFF/tmw TD: 04/28/2017 09:34 JOB #: [id number] MEDICAL IMAGING REPORT Page 1 of 1 COPY
--- NOTE | ~2017-04-26 | CT134 ---
[facility] A Service of [facility] RADIOLOGY TEXT RESULTS PATIENT: JORGE MELENDEZ LOCATION: A 303- : 63 UNIT #: [id number] AGE: [address]: Simona Prince MD SEX: M ORDER DR: [id number] [facility]. [place], [place] [address] [id number] I MR#: [id number] Acc #: [id number] NAME: JORGE MELENDEZ : 1965 SEX: M STUDY DATE/TIME: 04/27/2017 9:55 UNIT: A U ROOM: 303 STUDY DESCRIPTION: CT Guide Attending Physician: Simona Prince M.D. Ordering Physician: Heather Guardado M.D. Primary Care Physician: Yasmeen Hernandez Aprn MEDICAL IMAGING REPORT This report is preliminary unless electronic signature is present EXAM Attempted CT-guided thoracentesis. INDICATION Mr. Melendez is a 51-year-old man who was referred for left thoracentesis. Preliminary ultrasound of the left hemithorax showed a very small amount of fluid. He was subsequently transferred to CT for an attempt under CT guidance. TECHNIQUE This CT exam was performed with one or more of the following radiation dose reduction techniques: automatic exposure control, adjustment of mA and/or kV according to patient size, and iterative reconstruction. PROCEDURE The patient was placed in the right lateral decubitus position. Preliminary CT scan was performed through the region of interest and patient was noted to have a very small left-sided pleural effusion. The distance from the skin surface into the pleural space was over 10 cm which is longer than the Yueh catheter used for thoracentesis. Given small amount of fluid, the procedure was subsequently terminated. IMPRESSION The distance between the patient's skin surface and the pleural space is longer than the Yueh catheter when the patient was placed in the right lateral decubitus position. Given that he has a relatively minimal volume of fluid, procedure was subsequently terminated. Dictated by... Shayla Moore M.D. [facility] A Service of [facility] RADIOLOGY TEXT RESULTS PATIENT: JORGE MELENDEZ LOCATION: [facility] 303-01 : 63 UNIT #: [id number] AGE: [address]: Simona Prince MD SEX: M ORDER DR: THIS IS AN ELECTRONICALLY VERIFIED REPORT Shayla Moore M.D. at 05/01/2017 3:28 PM AFF/tmw TD: 04/28/2017 09:31 JOB #: [id number] MEDICAL IMAGING REPORT Page 1 of 1 COPY
[2017-04-26 15:03] LABS: BASOPHIL# 0.1 X10e3 (0-0.3); BASOPHIL% 0.9 % (0-2.5); EOSINOPHIL% 0.2 % (0.0-7.0); HEMATOCRIT 39.1 % (38.0-50.0); HEMOGLOBIN 12.8 gm/dL (13.0-16.0); LYMPHOCYTE# 2.6 X10e3 (1.0-3.5); LYMPHOCYTE% 16.1 % (17.0-45.0); MEAN CELL VOLUME 89.6 FL (83-96); MEAN CORPUSCULAR HEMOGLOBIN 29.3 PG (28-34); MEAN CORPUSCULAR HGB CONC 32.7 g/dL (30-36); MEAN PLATELET VOLUME 7.2 FL (6.5-11.5); MONOCYTE# 1.4 X10e3 (0-1.0); MONOCYTE% 8.8 % (3.0-12.0); NEUTROPHIL# 12.2 X10e3 (1.5-7.1); PLATELET COUNT 328 X10e3 (140-420); RED BLOOD COUNT 4.37 X10e (3.90-5.60); RED CELL DISTRIBUTION WIDTH 14.6 % (11.0-15.5); WHITE BLOOD COUNT 16.4 X10e3 (4.0-10.5)
[2017-04-26 15:06] LABS: DIFF IND YES
[2017-04-26 15:28] LABS: ALBUMIN SERUM 3.3 g/dL (3.5-5.0); BILIRUBIN, DIRECT 0.2 mg/dL (0.0-0.2); BILIRUBIN,INDIRECT 0.7 mg/dL (0.0-0.9); BILIRUBIN,TOTAL 0.9 mg/dL (0.2-2.0); BUN/CREATININE RATIO 22.5; CALCIUM SERUM 9.2 mg/dL (8.4-10.2); CREATININE SERUM 0.8 mg/dL (0.6-1.4); GLOM FILT RATE Estimated 102.7 mL/min (>60); POTASSIUM 4.5 mmol/L (3.5-5.1); PROTEIN TOTAL SERUM 7.7 g/dL (6.0-8.3)
[2017-04-26 15:40] LABS: PLATELET ESTIMATE NORMAL (NORMAL)
[2017-04-26 15:41] LABS: ANISOCYTOSIS SL; RBC NORMAL YES
[2017-04-26 17:26] LABS: POC - CKMB 1.4 ng/mL (0.0-7.9); POC - TROPONIN <0.05 ng/mL (<=0.05)
[2017-04-26 19:46] LABS: POC - CKMB 1.4 ng/mL (0.0-7.9); POC - TROPONIN <0.05 ng/mL (<=0.05)
[2017-04-27 05:42] LABS: BASOPHIL# 0.1 X10e3 (0-0.3); BASOPHIL% 0.7 % (0-2.5); EOSINOPHIL# 0.1 X10e3 (0-0.7); HEMATOCRIT 39.2 % (38.0-50.0); HEMOGLOBIN 12.8 gm/dL (13.0-16.0); LYMPHOCYTE# 2.4 X10e3 (1.0-3.5); LYMPHOCYTE% 21.7 % (17.0-45.0); MEAN CELL VOLUME 90.1 FL (83-96); MEAN CORPUSCULAR HEMOGLOBIN 29.3 PG (28-34); MEAN CORPUSCULAR HGB CONC 32.6 g/dL (30-36); MEAN PLATELET VOLUME 7.8 FL (6.5-11.5); MONOCYTE# 1.2 X10e3 (0-1.0); MONOCYTE% 10.8 % (3.0-12.0); NEUTROPHIL# 7.2 X10e3 (1.5-7.1); NEUTROPHIL% 65.8 % (40-75); PLATELET COUNT 309 X10e3 (140-420); RED BLOOD COUNT 4.36 X10e (3.90-5.60); RED CELL DISTRIBUTION WIDTH 14.6 % (11.0-15.5); WHITE BLOOD COUNT 10.9 X10e3 (4.0-10.5)
[2017-04-27 05:44] LABS: DIFF IND NO
[2017-04-27 07:13] LABS: ALBUMIN SERUM 2.9 g/dL (3.5-5.0); BILIRUBIN,TOTAL 0.7 mg/dL (0.2-2.0); BUN/CREATININE RATIO 23.33; CALCIUM SERUM 8.8 mg/dL (8.4-10.2); CREATININE SERUM 0.6 mg/dL (0.6-1.4); GLOM FILT RATE Estimated 115.6 mL/min (>60); POTASSIUM 3.9 mmol/L (3.5-5.1); PROTEIN TOTAL SERUM 7.2 g/dL (6.0-8.3)
[2017-04-27 08:43] LABS: INR 1.1; PARTIAL THROMBOPLASTIN TIME 29.2 SECONDS (23.5-31.3); PROTHROMBIN TIME (PATIENT) 11.6 SECONDS (10.0-11.7)
[2017-05-01 22:25] LABS: ANA SCREEN Negative (Negative)
== END 2017-04-27 13:00 | disposition home or self-care (01) | DRG 204 ==
LOC: CED 14:37 → CEDOF 22:30 → CED 22:35 → C3A PCU 22:35 → CEDOF 04-27 02:00 → C3A PCU 04-27 08:23
PROVIDERS: Emergency Medicine; Internal Medicine
DX: R06.00 Dyspnea, unspecified (principal); J90 Pleural effusion, not elsewhere classified; E11.9 Type 2 diabetes mellitus without complications; Z79.4 Long term (current) use of insulin; I10 Essential (primary) hypertension; F17.200 Nicotine dependence, unspecified, uncomplicated; G47.33 Obstructive sleep apnea (adult) (pediatric); K74.60 Unspecified cirrhosis of liver; Z82.0 Family history of epilepsy and other diseases of the nervous system
CPT/HCPCS: 36415; 71275; 77012; 80048; 80053; 80076; 82553; 82947; 83615; 83880; 84443; 84484; 85025; 85610; 85652; 85730; 86038; 86039; 86430; 87040; 93005; 99285; G0378; Q9967

== ENCOUNTER → 2017-04-26 | Outpatient (CLI) | payer OTHER ==
--- NOTE | ~2017-04-26 | CT4 ---
[facility] A Service of [facility] RADIOLOGY TEXT RESULTS PATIENT: JORGE RICH LOCATION: [facility] : 63 UNIT #: [id number] AGE: [address]: JANUSZ SANTANA APRN SEX: M ORDER DR: [id number] [facility] [address] [place], [place] [address] [id number] O MR#: [id number] Acc #: [id number] NAME: JORGE RICH : 1965 SEX: M STUDY DATE/TIME: 04/26/2017 19:43 UNIT: [facility] ROOM: STUDY DESCRIPTION: CT Abd and Pelv Wo Cont Attending Physician: Janusz Santana Aprn Referring Physician: Janusz Santana Aprn Ordering Physician: Janusz Santana Aprn Primary Care Physician: Janusz Santana Aprn MEDICAL IMAGING REPORT This report is preliminary unless electronic signature is present EXAM CT abdomen and pelvis INDICATIONS Ascites. Shortness of air. Back pain. TECHNIQUE CT of the abdomen and pelvis without contrast. Coronal and sagittal reconstructions were obtained. This CT exam was performed with one or more of the following radiation dose reduction techniques: automatic exposure control, adjustment of mA and/or kV according to patient size, and iterative reconstruction. COMPARISON CT of the chest dated 04/26/2017. FINDINGS Please refer to the separate dictated report for details on the chest. Patient does have a left pleural effusion and small pericardial effusion. There is decreased attenuation throughout the hepatic parenchyma indicative of hepatic steatosis. Liver is morphologically cirrhotic. Gallbladder is not distended. Pancreas, spleen, adrenal glands are within normal limits. No urinary calculi. No hydronephrosis. The bowel is not dilated. There is occasional colonic diverticula. No diverticulitis. The appendix is normal. The abdominal aorta is normal in caliber. Pelvis: No pelvic mass. Bladder is unremarkable. No enlarged pelvic or inguinal lymph nodes. [facility] A Service of [facility] RADIOLOGY TEXT RESULTS PATIENT: JORGE RICH LOCATION: [facility] #: [id number] : 63 UNIT #: [id number] AGE: [address]: JANUSZ SANTANA APRN SEX: M ORDER DR: No acute osseous abnormalities. IMPRESSION 1. No acute findings abdomen and pelvis. No ascites. 2. Hepatic steatosis and hepatic cirrhosis. 3. Please refer to separate dictated report for details on the chest. Dictated by... Robert King M.D. THIS IS AN ELECTRONICALLY VERIFIED REPORT Robert King M.D. at 04/27/2017 1:17 PM MUSTAPHA/maria isabel TD: 04/26/2017 21:18 JOB #: [id number] MEDICAL IMAGING REPORT Page 1 of 1 COPY
== END | disposition home or self-care (01) ==
LOC: CCAT 12:37
DX: R18.8 Other ascites (principal); K76.0 Fatty (change of) liver, not elsewhere classified; K74.60 Unspecified cirrhosis of liver
CPT/HCPCS: 74176